=== PATIENT | male | born 1980 | race Caucasian/White ===

== ENCOUNTER 2019-09-21 10:37 | Emergency (ER) | payer OTHER ==
[~2019-09-21 10:37] MED LIST: Ketorolac 30 MG/ML SDV ONE
[2019-09-21] MEDS ORDERED: Ketorolac 10 MG Tab PO ONE (10:38)
[2019-09-21] MEDS ORDERED: Clindamycin HCl 150 MG Cap PO ONE (10:38)
[2019-09-21] MEDS ORDERED: Clindamycin Phosphate in D5W 600 MG in Premix Bag 1 BAG IV ONE ×2 (10:50)
[2019-09-21] MEDS ORDERED: Clindamycin Phosphate in D5W 300 MG in Premix Bag 1 BAG IV ONE ×2 (10:51)
--- NOTE | 2019-09-21 10:57 | EDM.PDOC ---
ED HPI GENERAL MEDICAL PROBLEM - General Chief Complaint: General Stated Complaint: tooth ache Time Seen by Provider: 09/21/19 10:45 Source of Information: Reports: Patient History Limitations: Reports: No Limitations - History of Present Illness INITIAL COMMENTS - FREE TEXT/NARRATIVE: Patient to the emergency department complaining of pain and swelling to the right lower mandible that started this morning. The patient advises that yesterday did have some dental pain and then today he developed sudden onset of swelling. He denies any trismus he denies any ear pain he denies any neck pain denies any throat pain or swelling. He denies any problems swallowing or breathing. The patient denies any fever chills denies any other symptoms Onset: Today Location: Reports: Face Quality: Reports: Ache Severity: Moderate Improves with: Reports: None Worsens with: Reports: None Associated Symptoms: Denies: Cough, Fever/Chills, Nausea/Vomiting, Shortness of Breath Treatments [employer]: Reports: Other (see below) (none) - Related Data Allergies Allergy/AdvReac Type Severity Reaction Status Date / Time Penicillins Allergy Airway Verified 09/21/19 10:41 Tightness Home Meds: Home Meds Clindamycin HCl 150 mg PO TID 10 Days #30 capsule 09/21/19 [Rx] Ketorolac [Toradol] 10 mg PO TID PRN 3 Days #12 tab 09/21/19 [Rx] Lisinopril [Zestril] 20 mg PO BID 09/21/19 [History] Metoprolol Succinate [Toprol XL] 25 mg PO DAILY 09/21/19 [History] Past Medical History - Past Health History Medical/Surgical History: Denies Medical/Surgical History Social & Family History - Family History Cardiac: Reports: Hypertension - Tobacco Use Tobacco Use Within Last Twelve Months: No - Living Situation & Occupation Living situation: Reports: , with Family ED ROS GENERAL - Review of Systems Review Of Systems: See Below Constitutional: Reports: No Symptoms. Denies: Fever, Chills HEENT: Reports: Other (Right mandible pain and swelling). Denies: Ear Pain, Nose Pain, Throat Pain Respiratory: Reports: No Symptoms. Denies: Shortness of Breath Cardiovascular: Reports: No Symptoms GI/Abdominal: Reports: No Symptoms. Denies: Abdominal Pain, Nausea, Vomiting Musculoskeletal: Reports: No Symptoms Skin: Reports: No Symptoms. Denies: Rash, Erythema Neurological: Reports: No Symptoms Psychiatric: Reports: No Symptoms ED EXAM, GENERAL - Physical Exam Exam: See Below Exam Limited By: No Limitations General Appearance: Alert, WD/WN, No Apparent Distress Ears: Normal External Exam, Normal Canal, Hearing Grossly Normal, Normal TMs Nose: Normal Inspection, Normal Mucosa Throat/Mouth: Normal Lips, Normal Oropharynx, Normal Voice, No Airway Compromise , Other (The patient has multiple dental caries, does have significantly decayed right premolar and molar) Head: Atraumatic, Normocephalic Neck: Normal Inspection, Supple, Non-Tender, Full Range of Motion, Lymphadenopathy (R) Respiratory/Chest: No Respiratory Distress, Lungs Clear, Normal Breath Sounds, Chest Non-Tender Cardiovascular: Normal Peripheral Pulses, Regular Rate, Rhythm, No Murmur Peripheral Pulses: 2+: Radial (L) GI/Abdominal: Soft, Non-Tender Back Exam: Normal Inspection, Full Range of Motion Extremities: Normal Inspection, Normal Range of Motion, Non-Tender, Normal Capillary Refill Neurological: Alert, Oriented, Normal Cognition, Normal Gait, No Motor/Sensory Deficits Psychiatric: Normal Affect, Normal Mood Skin Exam: Warm, Dry, Intact, Normal Color Course - Vital Signs Text/Narrative:: The patient was evaluated in the emergency department the patient does have a right mandibular dental abscess, the patient was given clindamycin 900 mg IV piggyback as well as Toradol 10 mg IV push. The patient be discharged with clindamycin 150 mg 3 times a day for 10 days the patient will advised to apply warm moist heat off-and-on frequently he will be given Toradol 10 mg 3 times daily as needed. The patient is to follow-up in the dental clinic this week he is to return to emergency department sooner if worse or any problems - Orders/Labs/Meds Meds: Medications Discontinued Medications Generic Name Dose Route Start Last Admin Trade Name Freq PRN Reason Stop Dose Admin Clindamycin HCl 1 packet 09/21/19 11:31 Take Home: Clindamycin Hcl 150 Mg, 6 Cap Pack PO 09/21/19 11:32 ONETIME ONE Clindamycin Phosphate 600 mg/ 50 mls @ 100 mls/hr 09/21/19 10:50 09/21/19 11: 21 Premix IV 09/21/19 11:19 100 mls/hr ONETIME ONE Administration Clindamycin Phosphate 300 mg/ 50 mls @ 100 mls/hr 09/21/19 10:51 Premix IV 09/21/19 11:20 ONETIME ONE Ketorolac Tromethamine Confirm 09/21/19 10:34 09/21/19 11:04 Toradol Administered 09/21/19 10:35 30 mg Dose Administration 30 mg .ROUTE .STK-MED ONE Ketorolac Tromethamine 1 packet 09/21/19 11:31 Take Home: Ketorolac 10 Mg, 4 Tab Pack PO 09/21/19 11:32 ONETIME ONE Departure - Departure Time of Disposition: 11:32 Disposition: Home, Self-Care 01 Condition: Good Clinical Impression: Dental abscess - Discharge Information *PRESCRIPTION DRUG MONITORING PROGRAM REVIEWED*: Not Applicable *COPY OF PRESCRIPTION DRUG MONITORING REPORT IN PATIENT PAWEL: Not Applicable Prescriptions: Clindamycin HCl 150 mg PO TID 10 Days #30 capsule Ketorolac [Toradol] 10 mg PO TID PRN 3 Days #12 tab PRN Reason: Pain (Moderate 4-6) Instructions: Dental Abscess Forms: ED Department Discharge Additional Instructions: Apply warm moist heat off-and-on frequently to your jaw Clindamycin 150 mg 3 times a day for 10 days Toradol 10 mg every 8 hours as needed for pain Follow-up with the dentist this week, call tomorrow for an appointment time Return to the emergency department sooner if worse or any problems Sepsis Event Note - Focused Exam Date Exam was Performed: 09/21/19 Time Exam was Performed: 11:32 - Problem List & Annotations (1) Dental abscess SNOMED Code(s): 357325476 Code(s): K04.7 - PERIAPICAL ABSCESS WITHOUT SINUS Status: Acute Priority : High - Problem List Review Problem List Initiated/Reviewed/Updated: Yes - Assessment/Plan Plan: as above
[2019-09-21] MEDS ORDERED: Take Home: Clindamycin HCl 150 MG Cap, 6 Cap Pack PO ONE (11:31)
[2019-09-21] MEDS ORDERED: Take Home: Ketorolac 10 MG Tab, 4 Tab Pack PO ONE (11:31)
[2019-09-21 11:40] VITALS: BP 165/96; PULSE 94
[2019-09-21] MEDS ORDERED: Ketorolac 30 MG/ML SDV IVPUSH ONE (12:03)
== END 2019-09-21 12:20 | disposition home or self-care (01) ==
LOC: CC.ED 10:37
DX: K04.7 Periapical abscess without sinus (principal); K02.9 Dental caries, unspecified; Z88.0 Allergy status to penicillin; Z79.899 Other long term (current) drug therapy
CPT/HCPCS: 96365; 96366; 96375; 99283-25; A9270-GY; J1885; J3490

== ENCOUNTER 2020-11-04 22:49 | Emergency (ER) | payer OTHER ==
[2020-11-04 22:52] VITALS: BP 171/94; PULSE 80
[2020-11-04] MEDS ORDERED: cefTRIAXone 1 GM Vial IM ONE (23:14)
--- NOTE | 2020-11-04 23:23 | EDM.PDOC ---
ED HPI GENERAL MEDICAL PROBLEM - General Chief Complaint: Lower Extremity Injury/Pain Stated Complaint: leg infection Time Seen by Provider: 11/04/20 23:11 Source of Information: Reports: Patient, RN History Limitations: Reports: No Limitations - History of Present Illness INITIAL COMMENTS - FREE TEXT/NARRATIVE: pulled a tick off his lateral left thigh about 7:30 pm 11/03 and this AM he noted a blister starting there. He states that he had cleaned it with alcohol and bandaid. This AM he had the start of a blister at the site. This evening he now has a blister the size 1.7 cm by 2.5 cm in diameter. the firmness under the blister is about 8 cm by 9cm in diameter. He states that he can feel that it is swollen but not tender. Area is slightly warm to touch. The blister is draining a clear to slightly yellow drainage. Onset Date: 11/03/20 Onset Time: 19:30 Location: Reports: Lower Extremity, Left Left Thigh Pain Score (Numeric/FACES): 2 - Related Data Allergies Allergy/AdvReac Type Severity Reaction Status Date / Time Penicillins Allergy Airway Verified 11/04/20 22:56 Tightness Home Meds: Home Meds Metoprolol Succinate [Toprol XL] 25 mg PO DAILY 09/21/19 [History] lisinopriL [Zestril] 20 mg PO BID 09/21/19 [History] Multivitamin 1 tab PO DAILY 11/04/20 [History] Past Medical History - Past Health History Medical/Surgical History: Denies Medical/Surgical History Cardiovascular History: Reports: Hypertension Gastrointestinal History: Reports: None Neurological History: Reports: Head Trauma, Migraines - Past Surgical History HEENT Surgical History: Reports: Tonsillectomy Cardiovascular Surgical History: Reports: None GI Surgical History: Reports: Appendectomy, Cholecystectomy Neurological Surgical History: Reports: None Social & Family History - Family History Family Medical History: No Pertinent Family History Cardiac: Reports: Hypertension - Tobacco Use Tobacco Use Status *Q: Current Every Day Tobacco User Years of Tobacco use: 20 Packs/Tins Daily: 0.5 - Caffeine Use Caffeine Use: Reports: Coffee - Living Situation & Occupation Living situation: Reports: , with Family Review of Systems - Review of Systems Review Of Systems: See Below Skin: Reports: Other (left lateral thigh) Neurological: Reports: No Symptoms ED EXAM, GENERAL - Physical Exam Exam: See Below Exam Limited By: No Limitations General Appearance: Alert, WD/WN, No Apparent Distress Skin Exam: Warm, Dry, Intact, Other (blister noted to the left lateral thigh. Measurements as above. He denies it being tender to touch. Area is slightly warm to touch. No swelling distal to the site.) Course - Vital Signs Last Recorded V/S: Last Vital Signs Temp 97.8 F 11/04/20 22:50 Pulse 80 11/04/20 22:50 Resp 18 11/04/20 22:50 BP 171/94 H 11/04/20 22:50 Pulse Ox 97 11/04/20 22:50 - Orders/Labs/Meds Orders: Active Orders 24 hr Category Date Time Status CULTURE WOUND [RM] Stat Lab 11/04/20 23:13 Ordered - Re-Assessments/Exams Free Text/Narrative Re-Assessment/Exam: 11/04/20 23:32 BP is elevated while here. He states at home it is usually good. He did take his evening lisinopril about 8 pm this evening. He is stressed being in the ER as he states. He does have a BP cuff at home and will check when he gets home and if continues to be up then will take an extra lisinopril when he gets home and monitor it and report f any concerns. Departure - Departure Time of Disposition: 23:23 Disposition: Home, Self-Care 01 Condition: Good Clinical Impression: Cellulitis Qualifiers: Site of cellulitis: extremity Site of cellulitis of extremity: lower extremity Laterality: left Qualified Code(s): L03.116 - Cellulitis of left lower limb - Discharge Information *PRESCRIPTION DRUG MONITORING PROGRAM REVIEWED*: Not Applicable *COPY OF PRESCRIPTION DRUG MONITORING REPORT IN PATIENT PAWEL: Not Applicable Instructions: Cellulitis, Adult Referrals: Ace Martinez PA-C [Primary Care Provider] - Additional Instructions: If area is worse in the AM then recheck in the clinic as may need additional shot or IV antibiotics. If you spike a temp then call clinic Ceftin 500 mg twice a day for 10 days If any questions call ER or clinic Sepsis Event Note (ED) - Evaluation Sepsis Screening Result: No Definite Risk - Focused Exam Vital Signs: Vital Signs Temp Pulse Resp BP Pulse Ox 11/04/20 22:50 97.8 F 80 18 171/94 H 97 - Problem List & Annotations (1) Cellulitis SNOMED Code(s): 093561517 Code(s): L03.90 - CELLULITIS, UNSPECIFIED Status: Acute Priority: High Current Visit: Yes Qualifiers: Site of cellulitis: extremity Site of cellulitis of extremity: lower extremity Laterality: left Qualified Code(s): L03.116 - Cellulitis of left lower limb - Problem List Review Problem List Initiated/Reviewed/Updated: Yes - My Orders Last 24 Hours: My Active Orders 11/04/20 23:13 CULTURE WOUND [RM] Stat - Assessment/Plan Last 24 Hours: My Active Orders 11/04/20 23:13 CULTURE WOUND [RM] Stat
== END 2020-11-04 23:35 | disposition home or self-care (01) ==
LOC: CC.ED 22:49
DX: L03.116 Cellulitis of left lower limb (principal); I10 Essential (primary) hypertension; Z79.899 Other long term (current) drug therapy; Z88.0 Allergy status to penicillin
CPT/HCPCS: 87070; 96372; 99283; J0696